=== PATIENT | female | born 1975 | race American Indian/Alaskan Native ===

== ENCOUNTER 2018-01-19 23:09 | Emergency (ER) | payer OTHER ==
[2018-01-20 11:21] LABS: Bacteria,Urine 1+ /HPF (Negative); Bilirubin,Urine NEG (Negative); Blood,Urine NEG (Negative); Color,Urine Yellow (Yellow); Mucus,Urine 3+ /HPF; Urobilinogen,Urine < 2.0 mg/dL (<2.0)
[2018-01-20 11:27] LABS: Alanine Aminotransferase 12 units/L (7-56); Albumin 4.1 g/dL (3.9-5); BUN/Creatinine Ratio 21; Blood Urea Nitrogen 15 mg/dL (7-17); Calcium 8.8 mg/dL (8.4-10.2); Hemolysis Index 2
[2018-01-20 11:29] LABS: Hematocrit 22.6 % (30.3-42.9); Hemoglobin 6.7 gm/dl (10.1-14.3); Mean Corpuscular HGB Conc 30 % (30-34); Platelet Count 297 K/mm3 (140-440); Red Blood Count 3.38 M/mm3 (3.65-5.03)
[2018-01-20 11:32] LABS: Amphetamine Screen,Urine PRESUMPTIVE NEGATIVE; Benzodiazepines Screen,Urine PRESUMPTIVE NEGATIVE; Cannabinoid Screen,Urine PRESUMPTIVE NEGATIVE; Cocaine Screen,Urine PRESUMPTIVE NEGATIVE; Methadone Screen,Urine PRESUMPTIVE NEGATIVE; Opiate Screen,Urine PRESUMPTIVE NEGATIVE
[2018-01-20 11:36] LABS: Mean Corpuscular Hemoglobin 20 pg (28-32); Mean Corpuscular Volume 67 fl (79-97); Red Cell Distribution Width 23.7 % (13.2-15.2)
--- NOTE | 2018-01-20 11:54 | XRay Report ---
ROUTINE CHEST, TWO VIEWS: HISTORY: Medical slight clearance. The trachea, heart, mediastinal contour, lung prasad and bony thorax are unremarkable. IMPRESSION: Unremarkable chest x-ray.
[2018-01-20] MEDS: FEOSOL PO SCH ×2 (12:24→22:48)
[2018-01-20 12:34] LABS: Basophils % (Manual) 0 % (0.0-1.8); RBC Morphology Normal; Total Cells Counted 100
--- NOTE | 2018-01-20 13:39 | Emergency Department Report ---
ED Psych HPI - General Chief Complaint: Dyspnea/Respdistress Stated Complaint: MENTAL HEALTH Time Seen by Provider: 01/20/18 10:38 Source: patient, police Mode of arrival: Ambulatory - History of Present Illness Initial Comments: Patient is a 42-year-old Female who is presenting with initial complaint of shortness of breath. Patient on further questioning states that she has asthma and has been feeling asthma symptoms for the past 5 years. Patient also states that she feels as though there is mold in her house that has fallen on her back is causing infection. The patient's mother took me outside the room and stated that the patient has an undiagnosed psychiatric disorder and that she has been very paranoid and feels as though there are people inside of the patient's mother did try and control the patient. Patient also has been lashing out and vandalizing homes secondary to the police did of the people in those homes are trying to harm her. Patient did not state that she is hearing voices but does become somewhat withdrawn during some of these questions regarding mental health. - Related Data Home Medications Medication Instructions Recorded Confirmed Last Taken Albuterol Sulfate [Ventolin HFA] 2 puff IH Q4H PRN 06/02/13 01/20/18 Unknown Allergies Allergy/AdvReac Type Severity Reaction Status Date / Time codeine Allergy Itching Verified 01/20/18 00:12 ED Review of Systems ROS: Stated complaint: MENTAL HEALTH Other details as noted in HPI Comment: All other systems reviewed and negative ED Past Medical Hx - Past Medical History Hx Psychiatric Treatment: No Hx Asthma: Yes - Surgical History Additional Surgical History: cyst removed from neck - Social History Substance Use Type: None - Medications Home Medications: Home Medications Medication Instructions Recorded Confirmed Last Taken Type Albuterol Sulfate [Ventolin HFA] 2 puff IH Q4H PRN 06/02/13 01/20/18 Unknown History ED Physical Exam - General Limitations: No Limitations General appearance: alert, in no apparent distress - Head Head exam: Present: atraumatic, normocephalic - Eye Eye exam: Present: normal appearance - ENT ENT exam: Present: mucous membranes moist - Neck Neck exam: Present: normal inspection - Respiratory Respiratory exam: Present: normal lung sounds bilaterally. Absent: respiratory distress, wheezes, rales, rhonchi - Cardiovascular Cardiovascular Exam: Present: regular rate, normal rhythm. Absent: systolic murmur, diastolic murmur, rubs, gallop - GI/Abdominal GI/Abdominal exam: Present: soft, normal bowel sounds. Absent: distended, tenderness, guarding - Extremities Exam Extremities exam: Present: normal inspection - Back Exam Back exam: Present: normal inspection - Neurological Exam Neurological exam: Present: alert, oriented X3 - Psychiatric Psychiatric exam: Present: normal mood, flat affect - Skin Skin exam: Present: warm, dry, intact, normal color. Absent: rash ED Course Vital Signs 01/20/18 01/20/18 01/20/18 00:08 11:07 19:34 Temperature 99 F 98.7 F 98 F Pulse Rate 101 H 92 H 70 Respiratory 18 18 Rate Blood Pressure 132/82 Blood Pressure [Left] Blood Pressure 136/75 [Right] O2 Sat by Pulse 100 100 99 Oximetry 01/20/18 01/21/18 01/21/18 19:35 00:09 06:43 Temperature 98 F Pulse Rate 88 77 Respiratory 18 18 18 Rate Blood Pressure Blood Pressure [Left] Blood Pressure 132/77 152/77 [Right] O2 Sat by Pulse 99 Oximetry 01/21/18 01/21/18 01/21/18 08:31 08:32 22:10 Temperature 98.6 F 98.7 F Pulse Rate 93 H 97 H Respiratory 15 15 16 Rate Blood Pressure Blood Pressure [Left] Blood Pressure 108/61 133/79 [Right] O2 Sat by Pulse 100 100 100 Oximetry 01/22/18 01/22/18 01/22/18 07:51 08:37 20:50 Temperature 98.5 F 98.6 F Pulse Rate 93 H 94 H Respiratory 18 16 18 Rate Blood Pressure Blood Pressure [Left] Blood Pressure 112/62 109/64 [Right] O2 Sat by Pulse 100 96 Oximetry 01/23/18 01/23/18 01/23/18 09:32 16:58 23:00 Temperature 98.6 F 99.0 F Pulse Rate 80 88 90 Respiratory 18 18 Rate Blood Pressure Blood Pressure [Left] Blood Pressure 99/56 87/51 98/60 [Right] O2 Sat by Pulse 100 99 Oximetry 01/24/18 01/24/18 01/24/18 10:10 19:19 19:20 Temperature 98.3 F Pulse Rate 100 H 109 H 111 H Respiratory 18 17 Rate Blood Pressure 121/60 Blood Pressure 97/70 [Left] Blood Pressure 102/74 [Right] O2 Sat by Pulse 99 97 98 Oximetry 01/24/18 01/25/18 01/25/18 19:58 07:29 22:00 Temperature 99.3 F 98.1 F 98.8 F Pulse Rate 96 H 97 H Respiratory 18 18 18 Rate Blood Pressure Blood Pressure 110/77 119/58 [Left] Blood Pressure 119/66 [Right] O2 Sat by Pulse 95 96 98 Oximetry 01/26/18 07:29 Temperature 98.7 F Pulse Rate 77 Respiratory 16 Rate Blood Pressure Blood Pressure 110/70 [Left] Blood Pressure [Right] O2 Sat by Pulse 97 Oximetry - Reevaluation(s) Reevaluation #1: 01/26/18 15:37 Patient has been reevaluated this time. Patient is still medically stable. Patient's hemoglobin was rechecked after being on iron tablets and is increased. Patient a longer in need of a blood transfusion at this time. Patient is asymptomatic. Patient is medically clear for psych placement. ED Medical Decision Making - Lab Data Result diagrams: 01/26/18 14:22 01/20/18 10:50 Lab Results 01/20/18 01/20/18 01/20/18 Range/Units 10:50 10:50 10:50 WBC 6.5 (4.5-11.0) K/mm3 RBC 3.38 L (3.65-5.03) M/mm3 Hgb 6.7 L (10.1-14.3) gm/dl Hct 22.6 L (30.3-42.9) % MCV 67 L (79-97) fl MCH 20 L (28-32) pg MCHC 30 (30-34) % RDW 23.7 H (13.2-15.2) % Plt Count 297 (140-440) K/mm3 Add Manual Diff Complete Total Counted 100 Seg Neuts % (Manual) 76.0 H (40.0-70.0) % Band Neutrophils % 0 % Lymphocytes % (Manual) 18.0 (13.4-35.0) % Reactive Lymphs % (Man) 0 % Monocytes % (Manual) 5.0 (0.0-7.3) % Eosinophils % (Manual) 1.0 (0.0-4.3) % Basophils % (Manual) 0 (0.0-1.8) % Metamyelocytes % 0 % Myelocytes % 0 % Promyelocytes % 0 % Blast Cells % 0 % Nucleated RBC % Not Reportable Seg Neutrophils # Man 4.9 (1.8-7.7) K/mm3 Band Neutrophils # 0.0 K/mm3 Lymphocytes # (Manual) 1.2 (1.2-5.4) K/mm3 Abs React Lymphs (Man) 0.0 K/mm3 Monocytes # (Manual) 0.3 (0.0-0.8) K/mm3 Eosinophils # (Manual) 0.1 (0.0-0.4) K/mm3 Basophils # (Manual) 0.0 (0.0-0.1) K/mm3 Metamyelocytes # 0.0 K/mm3 Myelocytes # 0.0 K/mm3 Promyelocytes # 0.0 K/mm3 Blast Cells # 0.0 K/mm3 WBC Morphology Not Reportable Hypersegmented Neuts Not Reportable Hyposegmented Neuts Not Reportable Hypogranular Neuts Not Reportable Smudge Cells Not Reportable Toxic Granulation Not Reportable Toxic Vacuolation Not Reportable Dohle Bodies Not Reportable Pelger-Huet Anomaly Not Reportable Ana Rods Not Reportable Platelet Estimate Not Reportable Clumped Platelets Not Reportable Plt Clumps, EDTA Not Reportable Large Platelets Not Reportable Giant Platelets Not Reportable Platelet Satelliting Not Reportable Plt Morphology Comment Not Reportable RBC Morphology Normal Dimorphic RBCs Not Reportable Polychromasia Not Reportable Hypochromasia Not Reportable Poikilocytosis Not Reportable Anisocytosis Not Reportable Microcytosis Not Reportable Macrocytosis Not Reportable Spherocytes Not Reportable Pappenheimer Bodies Not Reportable Sickle Cells Not Reportable Target Cells Not Reportable Tear Drop Cells Not Reportable Ovalocytes Not Reportable Helmet Cells Not Reportable [place] Bodies Not Reportable Weems Rings Not Reportable Shelia Cells Not Reportable Bite Cells Not Reportable Crenated Cell Not Reportable Elliptocytes Not Reportable Acanthocytes (Spur) Not Reportable Rouleaux Not Reportable Hemoglobin C Crystals Not Reportable Schistocytes Not Reportable Malaria parasites Not Reportable Otto Bodies Not Reportable Hem Pathologist Commnt No Sodium 142 (137-145) mmol/L Potassium 3.8 (3.6-5.0) mmol/L Chloride 103.7 (98-107) mmol/L Carbon Dioxide 27 (22-30) mmol/L Anion Gap 15 mmol/L BUN 15 (7-17) mg/dL Creatinine 0.7 (0.7-1.2) mg/dL Estimated GFR > 60 ml/min BUN/Creatinine Ratio 21 % Glucose 118 H (65-100) mg/dL Calcium 8.8 (8.4-10.2) mg/dL Total Bilirubin < 0.20 (0.1-1.2) mg/dL AST 12 (5-40) units/L ALT 12 (7-56) units/L Alkaline Phosphatase 83 (35-129) units/L Total Protein 7.9 (6.3-8.2) g/dL Albumin 4.1 (3.9-5) g/dL Albumin/Globulin Ratio 1.1 % TSH 2.210 (0.270-4.200) mlU/mL HCG, Qual (Negative) Urine Color (Yellow) Urine Turbidity (Clear) Urine pH (5.0-7.0) Ur Specific Brewer (1.003-1.030) Urine Protein (Negative) mg/dL Urine Glucose (UA) (Negative) mg/dL Urine Ketones (Negative) mg/dL Urine Blood (Negative) Urine Nitrite (Negative) Urine Bilirubin (Negative) Urine Urobilinogen (<2.0) mg/dL Ur Leukocyte Esterase (Negative) Urine WBC (Auto) (0.0-6.0) /HPF Urine RBC (Auto) (0.0-6.0) /HPF U Epithel Cells (Auto) (0-13.0) /HPF Urine Bacteria (Auto) (Negative) /HPF Urine Mucus /HPF Salicylates (2.8-20.0) mg/dL Urine Opiates Screen Urine Methadone Screen Acetaminophen (10.0-30.0) ug/mL Ur Barbiturates Screen Ur Phencyclidine Scrn Ur Amphetamines Screen U Benzodiazepines Scrn Urine Cocaine Screen U Marijuana (THC) Screen Drugs of Abuse Note Plasma/Serum Alcohol (0-0.07) % 01/20/18 01/20/18 01/20/18 Range/Units 10:50 10:50 10:50 WBC (4.5-11.0) K/mm3 RBC (3.65-5.03) M/mm3 Hgb (10.1-14.3) gm/dl Hct (30.3-42.9) % MCV (79-97) fl MCH (28-32) pg MCHC (30-34) % RDW (13.2-15.2) % Plt Count (140-440) K/mm3 Add Manual Diff Total Counted Seg Neuts % (Manual) (40.0-70.0) % Band Neutrophils % % Lymphocytes % (Manual) (13.4-35.0) % Reactive Lymphs % (Man) % Monocytes % (Manual) (0.0-7.3) % Eosinophils % (Manual) (0.0-4.3) % Basophils % (Manual) (0.0-1.8) % Metamyelocytes % % Myelocytes % % Promyelocytes % % Blast Cells % % Nucleated RBC % Seg Neutrophils # Man (1.8-7.7) K/mm3 Band Neutrophils # K/mm3 Lymphocytes # (Manual) (1.2-5.4) K/mm3 Abs React Lymphs (Man) K/mm3 Monocytes # (Manual) (0.0-0.8) K/mm3 Eosinophils # (Manual) (0.0-0.4) K/mm3 Basophils # (Manual) (0.0-0.1) K/mm3 Metamyelocytes # K/mm3 Myelocytes # K/mm3 Promyelocytes # K/mm3 Blast Cells # K/mm3 WBC Morphology Hypersegmented Neuts Hyposegmented Neuts Hypogranular Neuts Smudge Cells Toxic Granulation Toxic Vacuolation Dohle Bodies Pelger-Huet Anomaly Ana Rods Platelet Estimate Clumped Platelets Plt Clumps, EDTA Large Platelets Giant Platelets Platelet Satelliting Plt Morphology Comment RBC Morphology Dimorphic RBCs Polychromasia Hypochromasia Poikilocytosis Anisocytosis Microcytosis Macrocytosis Spherocytes Pappenheimer Bodies Sickle Cells Target Cells Tear Drop Cells Ovalocytes Helmet Cells [place] Bodies Weems Rings [place] Cells Bite Cells Crenated Cell Elliptocytes Acanthocytes (Spur) Rouleaux Hemoglobin C Crystals Schistocytes Malaria parasites Otto Bodies Hem Pathologist Commnt Sodium (137-145) mmol/L Potassium (3.6-5.0) mmol/L Chloride (98-107) mmol/L Carbon Dioxide (22-30) mmol/L Anion Gap mmol/L BUN (7-17) mg/dL Creatinine (0.7-1.2) mg/dL Estimated GFR ml/min BUN/Creatinine Ratio % Glucose (65-100) mg/dL Calcium (8.4-10.2) mg/dL Total Bilirubin (0.1-1.2) mg/dL AST (5-40) units/L ALT (7-56) units/L Alkaline Phosphatase (35-129) units/L Total Protein (6.3-8.2) g/dL Albumin (3.9-5) g/dL Albumin/Globulin Ratio % TSH (0.270-4.200) mlU/mL HCG, Qual (Negative) Urine Color (Yellow) Urine Turbidity (Clear) Urine pH (5.0-7.0) Ur Specific Brewer (1.003-1.030) Urine Protein (Negative) mg/dL Urine Glucose (UA) (Negative) mg/dL Urine Ketones (Negative) mg/dL Urine Blood (Negative) Urine Nitrite (Negative) Urine Bilirubin (Negative) Urine Urobilinogen (<2.0) mg/dL Ur Leukocyte Esterase (Negative) Urine WBC (Auto) (0.0-6.0) /HPF Urine RBC (Auto) (0.0-6.0) /HPF U Epithel Cells (Auto) (0-13.0) /HPF Urine Bacteria (Auto) (Negative) /HPF Urine Mucus /HPF Salicylates < 0.3 L (2.8-20.0) mg/dL Urine Opiates Screen Urine Methadone Screen Acetaminophen < 5.0 L (10.0-30.0) ug/mL Ur Barbiturates Screen Ur Phencyclidine Scrn Ur Amphetamines Screen U Benzodiazepines Scrn Urine Cocaine Screen U Marijuana (THC) Screen Drugs of Abuse Note Plasma/Serum Alcohol < 0.01 (0-0.07) % 01/20/18 01/20/18 01/20/18 Range/Units 10:50 11:07 11:07 WBC (4.5-11.0) K/mm3 RBC (3.65-5.03) M/mm3 Hgb (10.1-14.3) gm/dl Hct (30.3-42.9) % MCV (79-97) fl MCH (28-32) pg MCHC (30-34) % RDW (13.2-15.2) % Plt Count (140-440) K/mm3 Add Manual Diff Total Counted Seg Neuts % (Manual) (40.0-70.0) % Band Neutrophils % % Lymphocytes % (Manual) (13.4-35.0) % Reactive Lymphs % (Man) % Monocytes % (Manual) (0.0-7.3) % Eosinophils % (Manual) (0.0-4.3) % Basophils % (Manual) (0.0-1.8) % Metamyelocytes % % Myelocytes % % Promyelocytes % % Blast Cells % % Nucleated RBC % Seg Neutrophils # Man (1.8-7.7) K/mm3 Band Neutrophils # K/mm3 Lymphocytes # (Manual) (1.2-5.4) K/mm3 Abs React Lymphs (Man) K/mm3 Monocytes # (Manual) (0.0-0.8) K/mm3 Eosinophils # (Manual) (0.0-0.4) K/mm3 Basophils # (Manual) (0.0-0.1) K/mm3 Metamyelocytes # K/mm3 Myelocytes # K/mm3 Promyelocytes # K/mm3 Blast Cells # K/mm3 WBC Morphology Hypersegmented Neuts Hyposegmented Neuts Hypogranular Neuts Smudge Cells Toxic Granulation Toxic Vacuolation Dohle Bodies Pelger-Huet Anomaly Ana Rods Platelet Estimate Clumped Platelets Plt Clumps, EDTA Large Platelets Giant Platelets Platelet Satelliting Plt Morphology Comment RBC Morphology Dimorphic RBCs Polychromasia Hypochromasia Poikilocytosis Anisocytosis Microcytosis Macrocytosis Spherocytes Pappenheimer Bodies Sickle Cells Target Cells Tear Drop Cells Ovalocytes Helmet Cells [place] Bodies Weems Rings Shelia Cells Bite Cells Crenated Cell Elliptocytes Acanthocytes (Spur) Rouleaux Hemoglobin C Crystals Schistocytes Malaria parasites Otto Bodies Hem Pathologist Commnt Sodium (137-145) mmol/L Potassium (3.6-5.0) mmol/L Chloride (98-107) mmol/L Carbon Dioxide (22-30) mmol/L Anion Gap mmol/L BUN (7-17) mg/dL Creatinine (0.7-1.2) mg/dL Estimated GFR ml/min BUN/Creatinine Ratio % Glucose (65-100) mg/dL Calcium (8.4-10.2) mg/dL Total Bilirubin (0.1-1.2) mg/dL AST (5-40) units/L ALT (7-56) units/L Alkaline Phosphatase (35-129) units/L Total Protein (6.3-8.2) g/dL Albumin (3.9-5) g/dL Albumin/Globulin Ratio % TSH (0.270-4.200) mlU/mL HCG, Qual Negative (Negative) Urine Color Yellow (Yellow) Urine Turbidity Clear (Clear) Urine pH 6.0 (5.0-7.0) Ur Specific Brewer 1.028 (1.003-1.030) Urine Protein 30 mg/dl (Negative) mg/dL Urine Glucose (UA) Neg (Negative) mg/dL Urine Ketones Neg (Negative) mg/dL Urine Blood Neg (Negative) Urine Nitrite Neg (Negative) Urine Bilirubin Neg (Negative) Urine Urobilinogen < 2.0 (<2.0) mg/dL Ur Leukocyte Esterase Sm (Negative) Urine WBC (Auto) 11.0 H (0.0-6.0) /HPF Urine RBC (Auto) 5.0 (0.0-6.0) /HPF U Epithel Cells (Auto) 8.0 (0-13.0) /HPF Urine Bacteria (Auto) 1+ (Negative) /HPF Urine Mucus 3+ /HPF Salicylates (2.8-20.0) mg/dL Urine Opiates Screen Presumptive negative Urine Methadone Screen Presumptive negative Acetaminophen (10.0-30.0) ug/mL Ur Barbiturates Screen Presumptive negative Ur Phencyclidine Scrn Presumptive negative Ur Amphetamines Screen Presumptive negative U Benzodiazepines Scrn Presumptive negative Urine Cocaine Screen Presumptive negative U Marijuana (THC) Screen Presumptive negative Drugs of Abuse Note Disclamer Plasma/Serum Alcohol (0-0.07) % - Medical Decision Making Patient is exhibiting delusions and paranoia. The patient was placed on a 1013. Patient does not exhibit insight that her delusions and paranoia or problem. Review of the patient's laboratory studies the patient is noted to be anemi. Patient states that she does have heavy periods and just below. Her menses several days ago. Patient does remember seeing some clots with the bleeding. Patient states that she is a Zoroastrianism and also stated that she was most long and that she could not receive a blood transfusion. Patient states she is adamant that she does not receive blood products at this time. Patient was started on iron supplements. Patient is not exhibiting any obvious shortness of breath or chest pain at this time. The patient is stable for psychiatric evaluation at this time. C. Critical care attestation.: If time is entered above; I have spent that time in minutes in the direct care of this critically ill patient, excluding procedure time. ED Disposition Clinical Impression: Psychosis Qualifiers: Psychosis type: unspecified psychosis type Qualified Code(s): F29 - Unspecified psychosis not due to a substance or known physiological condition Disposition: DC/TX-65 PSY HOSP/PSY UNIT Is pt being admited?: No Does the pt Need Aspirin: No Condition: Stable Referrals: PRIMARY CAREMD [Primary Care Provider] - 3-5 Days
[2018-01-21] MEDS: FEOSOL PO SCH (12:05)
--- NOTE | 2018-01-21 13:03 | Consultation ---
History of Present Illness - Reason for Consult Consult date: 01/21/18 Reason for consult: Mental Health Evaluation Requesting physician: IFEANYI PEREZ - Chief Complaint Chief complaint: "They are after me" - History of Present Psychiatric Illness 42-year-old Female who is presenting with initial complaint of shortness of breath along with acute psychosis. Today the patient is calm and cooperative, but delusional during the assessment. She stated that her neighbors are after her for reason. She stated that the neighbors have always wanted to "capture" her because she is "special person." After telling this story, she stated that she is depressed because she isn't a mother, not , and don't have the good job. She would not elaborate more about her depression when asked, but started telling another story about someone following her currently while being in the ER. Throughout the interview, the patient covered herself with blankets, but denied being cold. She stated not sleeping for several days prior to her arrival to the hospital. She stated that sleep at that time wasn't necessary. She denies SI/HI's and AVH's. She denies a poor appetite. She denies recreational drug use and alcohol consumption (etoh). Medications and Allergies Allergies Allergy/AdvReac Type Severity Reaction Status Date / Time codeine Allergy Itching Verified 01/20/18 00:12 Home Medications Medication Instructions Recorded Confirmed Last Taken Type Albuterol Sulfate [Ventolin HFA] 2 puff IH Q4H PRN 06/02/13 01/20/18 Unknown History Active Meds: Active Medications Ferrous Sulfate (Feosol) 325 mg PO BID AIME Last Admin: 01/21/18 12:05 Dose: 325 mg Mental Status Exam - Vital signs Last Vital Signs Temp 98.6 F 01/21/18 08:31 Pulse 93 H 01/21/18 08:31 Resp 15 01/21/18 08:32 BP 108/61 01/21/18 08:31 Pulse Ox 100 01/21/18 08:32 - Exam Narrative exam: MSE: Appearance: calm, cooperative Behavior: regular eye contact Speech: regular rate and tone Mood: "depressed" Affect: congruent to mood Thought Process: disorganized Thought Content: denies SI/HI's and VH's, paranoia, grandiose, delusional Motor Activity: ambulatory Cognition: A/O x3 Insight: poor Judgment: poor Results Result Diagrams: 01/20/18 10:50 01/20/18 10:50 All other labs normal. Assessment and Plan Assessment and plan: Impression: Unspecified Mood DO with psy features. Today the patient is calm and cooperative, but delusional during the assessment. The patient is experiencing perceptional disturbances. The patient is a [employer] and refuses blood products. H/H 6.7/22.6. The patient is taking Ferrous Sulfate. DDx: Bipolar DO, R/O Schizophrenia, R/O Schizoaffective DO Recommendation/Plan: Continue 1013 with placement to inpatient psy services. Start Zyprexa 5 mg PO HS for psychosis. Discussed possible metabolic side effects Zyprexa with patient.
[2018-01-22] MEDS: FEOSOL PO SCH ×3 (00:20→21:40)
--- NOTE | 2018-01-22 14:04 | Progress Note ---
Subjective - Reason for Consult Consult date: 01/22/18 Reason for consult: Psychiatry Follow-up - Chief Complaint Chief complaint: "I am okay" 42-year-old Female who is presenting with initial complaint of shortness of breath along with acute psychosis. Today the patient is calm and cooperative, but still delusional during the assessment. She stated that the "[place] Child Murderer" is out to get her. She is adamant that this person will capture her soon. She stated that she feel better, but the fear of being captured is a concern. She denies SI/HI's and AVH's. She denies any side effects of her medication. Mental Status Exam - Vital signs Last Vital Signs Temp 98.5 F 01/22/18 07:51 Pulse 93 H 01/22/18 07:51 Resp 16 01/22/18 08:37 BP 112/62 01/22/18 07:51 Pulse Ox 100 01/22/18 07:51 - Exam Narrative exam: MSE: Appearance: calm, cooperative Behavior: regular eye contact Speech: regular rate and tone Mood: "depressed" Affect: congruent to mood Thought Process: disorganized Thought Content: denies SI/HI's and VH's, paranoia, grandiose, delusional Motor Activity: ambulatory Cognition: A/O x3 Insight: poor Judgment: poor Assessment and Plan Impression: Unspecified Mood DO with psy features. Today the patient is calm and cooperative, but delusional during the assessment. The patient is experiencing perceptional disturbances. The patient is a Taoist and refuses blood products. H/H 6.7/22.6. The patient is taking Ferrous Sulfate. DDx: Bipolar DO, R/O Schizophrenia, R/O Schizoaffective DO Recommendation/Plan: Continue 1013 with placement to inpatient psy services. Continue Zyprexa 5 mg PO HS for psychosis. Discussed possible metabolic side effects Zyprexa with patient.
[2018-01-23] MEDS: FEOSOL PO SCH ×2 (10:20→22:05)
[2018-01-23 11:03] LABS: Basophils % (Auto) 0.7 % (0.0-1.8); Eosinophils # (Auto) 0.1 K/mm3 (0.0-0.4); Eosinophils % (Auto) 1.1 % (0.0-4.3); Hematocrit 25.2 % (30.3-42.9); Hemoglobin 7.4 gm/dl (10.1-14.3); Lymphocytes # (Auto) 1.2 K/mm3 (1.2-5.4); Lymphocytes % (Auto) 19.1 % (13.4-35.0); Mean Corpuscular HGB Conc 30 % (30-34); Monocytes # (Auto) 0.4 K/mm3 (0.0-0.8); Monocytes % (Auto) 5.7 % (0.0-7.3); Platelet Count 211 K/mm3 (140-440); Red Blood Count 3.71 M/mm3 (3.65-5.03)
[2018-01-23 11:05] LABS: Mean Corpuscular Hemoglobin 20 pg (28-32); Mean Corpuscular Volume 68 fl (79-97); Red Cell Distribution Width 23.9 % (13.2-15.2)
--- NOTE | 2018-01-23 18:37 | Progress Note ---
Subjective - Reason for Consult Consult date: 01/23/18 Reason for consult: follow up - Chief Complaint Chief complaint: "Food doesn't go down well." 42-year-old Female who is presenting with initial complaint of shortness of breath along with acute psychosis. Today the patient is calm and cooperative, but still delusional during the assessment. She stated food doesn't go down well because she has a hole in her chest. She states she feels better but cannot say why she is in the hospital. She denies SI/HI's and AVH's. She denies any side effects of her medication. Mental Status Exam - Vital signs Last Vital Signs Temp 98.6 F 01/23/18 09:32 Pulse 88 01/23/18 16:58 Resp 18 01/23/18 09:32 BP 87/51 01/23/18 16:58 Pulse Ox 100 01/23/18 09:32 - Exam Narrative exam: MSE: Appearance: calm, cooperative Behavior: regular eye contact Speech: regular rate and tone Mood: "depressed" Affect: congruent to mood Thought Process: disorganized Thought Content: denies SI/HI's and VH's, bizarre/somatic delusions Motor Activity: ambulatory Cognition: A/O x3 Insight: poor Judgment: poor Assessment and Plan Impression: Unspecified Mood DO with psy features. Today the patient is calm and cooperative, but delusional during the assessment. The patient is experiencing perceptional disturbances. The patient is a Faith and refuses blood products. H/H 6.7/22.6 The patient is taking Ferrous Sulfate. DDx: Bipolar DO, R/O Schizophrenia, R/O Schizoaffective DO Recommendation/Plan: Continue 1013 with placement to inpatient psy services. Continue Zyprexa 5 mg PO HS for psychosis.
[2018-01-24] MEDS: FEOSOL PO SCH ×2 (10:15→22:36)
--- NOTE | 2018-01-24 18:15 | Progress Note ---
Subjective - Reason for Consult Consult date: 01/24/18 Reason for consult: follow up - Chief Complaint Chief complaint: "My neck is injured." 42-year-old Female who is presenting with initial complaint of shortness of breath along with acute psychosis. Today the patient is calm and cooperative, but still delusional during the assessment. She presents with somatic delusions. She states her neck is injured. She cannot say why she is in the hospital. She denies SI/HI's and AVH's. She denies any side effects of her medication. Mental Status Exam - Vital signs Last Vital Signs Temp 98.3 F 01/24/18 10:10 Pulse 100 H 01/24/18 10:10 Resp 18 01/24/18 10:10 BP 102/74 01/24/18 10:10 Pulse Ox 99 01/24/18 10:10 - Exam Narrative exam: MSE: Appearance: calm, cooperative Behavior: regular eye contact Speech: regular rate and tone Mood: "depressed" Affect: congruent to mood Thought Process: disorganized Thought Content: denies SI/HI's and VH's, bizarre/somatic delusions Motor Activity: ambulatory Cognition: A/O x3 Insight: poor Judgment: poor Assessment and Plan Impression: Unspecified Mood DO with psy features. Today the patient is calm and cooperative, but delusional during the assessment. The patient is experiencing perceptional disturbances. The patient is a Confucianist and refuses blood products. H/H 6.7/22.6 The patient is taking Ferrous Sulfate. DDx: Bipolar DO, R/O Schizophrenia, R/O Schizoaffective DO Recommendation/Plan: Continue 1013 with placement to inpatient psy services. Continue Zyprexa 5 mg PO HS for psychosis.
--- NOTE | 2018-01-25 10:40 | Progress Note ---
Subjective - Reason for Consult Consult date: 01/25/18 Reason for consult: Psychiatry Follow-up - Chief Complaint Chief complaint: "My neck is injured." 42-year-old Female who is presenting with initial complaint of shortness of breath along with acute psychosis. Today the patient is calm and cooperative, but still delusional during the assessment. She stated that her neck/'spine is not aligned. She denies SI/HI's and AVH's. She denies any side effects her medication. Mental Status Exam - Vital signs Last Vital Signs Temp 98.1 F 01/25/18 07:29 Pulse 96 H 01/25/18 07:29 Resp 18 01/25/18 07:29 BP 110/77 01/25/18 07:29 Pulse Ox 96 01/25/18 07:29 - Exam Narrative exam: MSE: Appearance: calm, cooperative Behavior: regular eye contact Speech: regular rate and tone Mood: "okay" Affect: congruent to mood Thought Process: disorganized Thought Content: denies SI/HI's and VH's, somatic delusions Motor Activity: ambulatory Cognition: A/O x3 Insight: poor Judgment: poor Assessment and Plan Impression: Unspecified Mood DO with psy features. Today the patient is calm and cooperative, but delusional during the assessment. 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 H/H is trending upward. The patient is taking Ferrous Sulfate. DDx: Bipolar DO, R/O Schizophrenia, R/O Schizoaffective DO Recommendation/Plan: Continue 1013 with placement to inpatient psy services. Continue Zyprexa 10 mg PO HS for psychosis. Discussed possible metabolic side effects Zyprexa with patient.
[2018-01-25] MEDS: FEOSOL PO SCH ×2 (11:49→22:26)
[2018-01-26] MEDS: FEOSOL PO SCH ×2 (10:36→23:48)
--- NOTE | 2018-01-26 12:11 | Progress Note ---
Subjective - Reason for Consult Consult date: 01/26/18 Reason for consult: Psychiatry Follow-up - Chief Complaint Chief complaint: "How are you" 42-year-old Female who is presenting with initial complaint of shortness of breath along with acute psychosis. Today the patient is calm and cooperative, but still delusional during the assessment. She stated that her arm maybe injured. She denies that her neck/spine isn't align per conversation yesterday. She did state seeing a psychiatrist in the past, but could not elaborate why. She denies SI/HI's and AVH's. She denies any side effects her medication. Mental Status Exam - Vital signs Last Vital Signs Temp 98.7 F 01/26/18 07:29 Pulse 77 01/26/18 07:29 Resp 16 01/26/18 07:29 BP 110/70 01/26/18 07:29 Pulse Ox 97 01/26/18 07:29 - Exam Narrative exam: MSE: Appearance: calm, cooperative Behavior: regular eye contact Speech: regular rate and tone Mood: "okay" Affect: congruent to mood Thought Process: circumstantial Thought Content: denies SI/HI's and VH's, somatic delusions Motor Activity: ambulatory Cognition: A/O x3 Insight: variable Judgment: variable Assessment and Plan Impression: Unspecified Mood DO with psy features. Today the patient is calm and cooperative, but delusional during the assessment. 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 H/H is trending upward. The patient is taking Ferrous Sulfate. DDx: Bipolar DO, R/O Schizophrenia, R/O Schizoaffective DO Recommendation/Plan: Continue 1013 with placement to inpatient psy services. Continue Zyprexa 10 mg PO HS for psychosis. Discussed possible metabolic side effects Zyprexa with patient.
[2018-01-26 14:40] LABS: Basophils % (Auto) 0.4 % (0.0-1.8); Eosinophils # (Auto) 0.1 K/mm3 (0.0-0.4); Eosinophils % (Auto) 1.2 % (0.0-4.3); Hematocrit 26.9 % (30.3-42.9); Hemoglobin 7.9 gm/dl (10.1-14.3); Lymphocytes # (Auto) 1.2 K/mm3 (1.2-5.4); Lymphocytes % (Auto) 17.5 % (13.4-35.0); Mean Corpuscular HGB Conc 29 % (30-34); Mean Corpuscular Hemoglobin 21 pg (28-32); Mean Corpuscular Volume 72 fl (79-97); Monocytes # (Auto) 0.4 K/mm3 (0.0-0.8); Platelet Count 198 K/mm3 (140-440); Red Blood Count 3.72 M/mm3 (3.65-5.03)
[2018-01-26 14:41] LABS: Red Cell Distribution Width 24.6 % (13.2-15.2)
--- NOTE | 2018-01-27 13:21 | Progress Note ---
Subjective - Reason for Consult Consult date: 01/27/18 Reason for consult: Psychiatric Follow-up Evaluation - Chief Complaint Chief complaint: "How are you" 42-year-old Female who is presenting with initial complaint of shortness of breath along with acute psychosis. Today the patient is calm and cooperative, but still delusional during the assessment. She stated that her arm maybe injured. She denies that her neck/spine isn't align per conversation yesterday. She did state seeing a psychiatrist in the past, but could not elaborate why. She denies SI/HI's and AVH's. She denies any side effects her medication. Mental Status Exam - Vital signs Last Vital Signs Temp 98.6 F 01/27/18 07:58 Pulse 86 01/27/18 07:58 Resp 18 01/27/18 07:58 BP 98/41 01/27/18 07:58 Pulse Ox 99 01/27/18 07:58 - Exam Narrative exam: Mental Status Exam: Appearance: calm, cooperative Behavior: regular eye contact Speech: regular rate and tone Mood: "okay" Affect: congruent to mood Thought Process: circumstantial Thought Content: denies SI/HI's and VH's, somatic delusions Motor Activity: ambulatory Cognition: A/O x3 Insight: variable Judgment: variable Assessment and Plan Impression: Unspecified Mood DO with psy features. Today the patient is calm and cooperative, but delusional during the assessment. 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 H/H is trending upward. The patient is taking Ferrous Sulfate. DDx: Bipolar DO, R/O Schizophrenia, R/O Schizoaffective DO Recommendation/Plan: Continue 1013 with placement to inpatient psy services. Continue Zyprexa 10 mg PO HS for psychosis. Discussed possible metabolic side effects Zyprexa with patient.
[2018-01-27] MEDS: FEOSOL PO SCH (22:00)
[2018-01-28] MEDS: FEOSOL PO SCH ×2 (10:30→22:30)
--- NOTE | 2018-01-28 13:09 | Progress Note ---
Subjective - Reason for Consult Consult date: 01/28/18 Reason for consult: Psychiatry Follow-up - Chief Complaint Chief complaint: "Hi" 42-year-old Female who is presenting with initial complaint of shortness of breath along with acute psychosis. Today the patient is calm and cooperative, but still delusional during the assessment. She stated that her she is having generalized pain. Her answers to question are not logical. She was asked about showering, she stated, "I don't need one." She denies SI/HI's and AVH's. She denies any side effects of her medication. Mental Status Exam - Vital signs Last Vital Signs Temp 98.8 F 01/27/18 22:39 Pulse 90 01/27/18 22:39 Resp 16 01/27/18 22:39 BP 132/66 01/27/18 22:39 Pulse Ox 99 01/27/18 22:39 - Exam Narrative exam: MSE: Appearance: calm, cooperative Behavior: regular eye contact Speech: regular rate and tone Mood: "okay" Affect: congruent to mood Thought Process: tangential Thought Content: denies SI/HI's and VH's, somatic delusions Motor Activity: ambulatory Cognition: A/O x3 Insight: poor Judgment: poor Assessment and Plan Impression: Unspecified Mood DO with psy features. Today the patient is calm and cooperative, but delusional during the assessment. 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 H/H is trending upward. The patient is taking Ferrous Sulfate. DDx: Bipolar DO, R/O Schizophrenia, R/O Schizoaffective DO Recommendation/Plan: The patient's 1013 was extended and placement is still ongoing. Continue Zyprexa 10 mg PO HS for psychosis. Discussed possible metabolic side effects Zyprexa with patient.
[2018-01-29] MEDS: FEOSOL PO SCH (11:10)
--- NOTE | 2018-01-29 11:16 | Progress Note ---
Subjective - Reason for Consult Consult date: 01/29/18 Reason for consult: Psychiatry Folow-up - Chief Complaint Chief complaint: "Im okay" 42-year-old Female who is presenting with initial complaint of shortness of breath along with acute psychosis. Today the patient is calm and cooperative, but still delusional during the assessment. She stated that her arms are hurting , but cannot elaborate more about her pain when asked. She is malodorous, but stated that she does not need to shower. She had to be redirected several to keep her on topic. She denies SI/HI's and AVH's. She denies any side effects of her medications. Mental Status Exam - Vital signs Last Vital Signs Temp 98.7 F 01/28/18 19:35 Pulse 97 H 01/28/18 19:35 Resp 18 01/28/18 19:41 BP 132/96 01/28/18 19:35 Pulse Ox 98 01/28/18 19:41 - Exam Narrative exam: MSE: Appearance: calm, cooperative, malodorous Behavior: regular eye contact Speech: regular rate and tone Mood: "okay" Affect: congruent to mood Thought Process: tangential Thought Content: denies SI/HI's and VH's, somatic delusions Motor Activity: ambulatory Cognition: A/O x3 Insight: poor Judgment: poor Assessment and Plan Impression: Unspecified Mood DO with psy features. Today the patient is calm and cooperative, but delusional during the assessment. 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 H/H is trending upward. The patient is taking Ferrous Sulfate. DDx: Bipolar DO, R/O Schizophrenia, R/O Schizoaffective DO Recommendation/Plan: Continue [address] [facility] pending transport time. Continue Zyprexa 10 mg PO HS for psychosis. Discussed possible metabolic side effects Zyprexa with patient. Encourage patient to shower.
[2018-01-29 20:00] VITALS: BP 143/73
== END 2018-01-29 20:03 ==
LOC: EEVIPCON 23:09 → ED 23:09
DX: R06.02 Shortness of breath (principal); F60.0 Paranoid personality disorder; Z88.6 Allergy status to analgesic agent
CPT/HCPCS: 36415; 71046; 80053; 80307; 81001; 82150; 83690; 84443; 84703; 85007; 85025; 99285; G0480; 80320